=== PATIENT | male | born 1960 | race African-American/Black ===

== ENCOUNTER 2019-03-29 10:51 | Inpatient (IN) ==
[2019-03-29] MEDS ORDERED: DOCUSATE SODIUM 100 MG CAPSULE PO PRN (14:42)
[2019-03-29] MEDS ORDERED: ACETAMINOPHEN 325 MG TABLET PO PRN (14:42)
[2019-03-29] MEDS ORDERED: hydrALAZINE 20 MG/1 ML VIAL IV PRN (14:42)
[2019-03-29] MEDS ORDERED: ONDANSETRON 4 MG/2 ML VIAL IV PRN (14:42)
[2019-03-29] MEDS ORDERED: ALBUTEROL 2.5 MG/3 ML NEB RESP TX PRN (14:42)
[2019-03-29] MEDS ORDERED: LACTULOSE 20 GM/30 ML UDCUP PO PRN (14:42)
[2019-03-29 15:21] LABS: Basophils % 0.9 % (0.0-0.8); Eosinophils # 0.5 10*3/uL (0.0-0.87); Eosinophils % 10.5 % (0.00-10.9); Hematocrit 39.3 VOL% (42.0-52.0); Hemoglobin 12.1 GM/DL (14.0-18.0); Immature Granulocytes % 0.2 %; Immature Granulocytes Absolute 0.01 #; Lymphocytes # 1.6 10*3/uL (1.4-4.0); Lymphocytes % 34.9 % (21.2-54.2); Mean Corpuscular HGB Conc 30.8 GM/DL (32-36); Mean Corpuscular Volume 94.7 FL (87-102); Mean Platelet Volume 9.5 FL (9.6-12.0); Monocytes % 15.8 % (1.7-12.7); Neutrophils % 37.7 % (38.7-73.9); Platelet Count 169 T/CUMM (130-400); Red Blood Count 4.15 MC/CUMM (3.8-5.5); Red Cell Distribution Width 13.6 % (9.3-17.3); White Blood Count 4.6 T/CUMM (4-12)
[2019-03-29 15:57] LABS: Albumin 3.8 G/DL (3.4-5.0); Bilirubin,Total 0.7 MG/DL (0.2-1.0); Calcium 9.5 MG/DL (8.5-10.1); Osmolality,Calculated 282.8 MOS/KG (273-304); Thyroid Stimulating Hormone 0.948 uIU/ml (0.358-3.74); Total Protein 7.2 G/DL (6.4-8.3)
[2019-03-29] MEDS: FUROSEMIDE 40 MG/4 ML VIAL IV SCH (16:07)
[2019-03-29 16:11] LABS: Eosinophils 8 % (0-10); Lymphocytes 37 % (20-55); Segmented Neutrophils 43 % (50-85); Total Cells Counted 100
[2019-03-29 16:12] LABS: Anisocytosis Slight; Hypochromasia Slight; Microcytosis Slight
[2019-03-29] MEDS: ASPIRIN EC 81 MG TABLET PO SCH (17:44)
[2019-03-29] MEDS: cefTRIAXone 1,000 MG in SYRINGE 1 EACH IV SCH (17:44)
[2019-03-29] MEDS: AZITHROMYCIN INJ 500 MG in SODIUM CHLORIDE 0.9% 250 ML IV SCH (17:44)
[2019-03-29] MEDS: ALBUTEROL/IPRATROPIUM 3 ML NEB RESP TX SCH (19:20)
[2019-03-29] MEDS: SIMVASTATIN 40 MG TABLET PO SCH (20:51)
[2019-03-29] MEDS: BUDESONIDE/FORMOTEROL 160-4.5 INHALER 6 GM INH SCH (20:52)
[2019-03-29] MEDS: ENOXAPARIN 30 MG/0.3 ML SYRINGE SUBCUT SCH (20:53)
[2019-03-30] MEDS: ALBUTEROL/IPRATROPIUM 3 ML NEB RESP TX SCH ×4 (01:20→19:15)
[2019-03-30 02:50] LABS: Basophils % 0.7 % (0.0-0.8); Eosinophils # 0.5 10*3/uL (0.0-0.87); Eosinophils % 11.2 % (0.00-10.9); Hematocrit 37.6 VOL% (42.0-52.0); Hemoglobin 11.8 GM/DL (14.0-18.0); Immature Granulocytes % 0.2 %; Immature Granulocytes Absolute 0.01 #; Lymphocytes # 1.8 10*3/uL (1.4-4.0); Lymphocytes % 39.2 % (21.2-54.2); Mean Corpuscular HGB Conc 31.4 GM/DL (32-36); Mean Platelet Volume 9.6 FL (9.6-12.0); Monocytes % 13.6 % (1.7-12.7); Neutrophils % 35.1 % (38.7-73.9); Platelet Count 175 T/CUMM (130-400); Red Cell Distribution Width 13.5 % (9.3-17.3); White Blood Count 4.6 T/CUMM (4-12)
[2019-03-30 03:08] LABS: Osmolality,Calculated 293.3 MOS/KG (273-304)
[2019-03-30 03:15] LABS: Risk Ratio 5.44
[2019-03-30 03:39] LABS: Band Neutrophils 4 % (0-10); Eosinophils 12 % (0-10); Hypochromasia 1+; Lymphocytes 34 % (20-55); Platelet Estimate Normal; Segmented Neutrophils 35 % (50-85); Total Cells Counted 100
[2019-03-30] MEDS ORDERED: MAGNESIUM HYDROXIDE SUSP 30 ML UDCUP PO ONE (09:17)
[2019-03-30] MEDS: COLCHICINE 0.6 MG CAPSULE PO SCH (09:32)
[2019-03-30] MEDS: PANTOPRAZOLE 40 MG TABLET PO SCH (09:32)
[2019-03-30] MEDS: FUROSEMIDE 40 MG/4 ML VIAL IV SCH (09:32)
[2019-03-30] MEDS: ASPIRIN EC 81 MG TABLET PO SCH (09:32)
[2019-03-30] MEDS: BUDESONIDE/FORMOTEROL 160-4.5 INHALER 6 GM INH SCH ×2 (09:36→20:29)
[2019-03-30] MEDS: POLYETHYLENE GLYCOL POWDER 17 GM PACK PO SCH (09:48)
[2019-03-30 11:24] LABS: Apearance,Urine Slightly Hazy (Clear); Bacteria,Urine Occasional /HPF (Few); Bilirubin,Urine Negative (Negative); Blood, Urine Small mg/dL (Negative); Glucose,Urine (UA) Negative (Negative); Hyaline Casts,Urine 1 /LPF (0-3); Ketones,Urine Negative (Negative); Mucus,Urine Occasional /LPF (Occasional); Nitrite,Urine Negative (Negative); Protein,Urine 100 MG/DL; RBC,Urine 7 /HPF (0-4); Squamous Epithelial Cell,Urine Occasional /HPF (0-10); Urine Color Yellow (Yellow); Urine Specific Gravity 1.016 (1.001-1.035); Urine Urobilinogen < 2.0 EU/DL (0.2-1.0); WBC,Urine 13 /HPF (0-6)
[2019-03-30] MEDS: POTASSIUM CHLORIDE 20 MEQ TABLET PO SCH (11:33)
[2019-03-30 11:38] LABS: Microalbum/Creat Ratio Random 464.2 RATIO (0-30)
[2019-03-30] MEDS: hydrALAZINE 10 MG TABLET PO SCH ×2 (15:55→20:28)
[2019-03-30] MEDS: ISOSORBIDE MONONITRATE 20 MG TABLET PO SCH (15:55)
[2019-03-30] MEDS: cefTRIAXone 1,000 MG in SYRINGE 1 EACH IV SCH (17:51)
[2019-03-30] MEDS: AZITHROMYCIN INJ 500 MG in SODIUM CHLORIDE 0.9% 250 ML IV SCH (17:52)
[2019-03-30] MEDS: SIMVASTATIN 40 MG TABLET PO SCH (20:29)
[2019-03-30] MEDS: ENOXAPARIN 30 MG/0.3 ML SYRINGE SUBCUT SCH (20:29)
[2019-03-31] MEDS: ALBUTEROL/IPRATROPIUM 3 ML NEB RESP TX SCH ×4 (00:33→19:16)
[2019-03-31 05:08] LABS: Basophils % 0.8 % (0.0-0.8); Eosinophils # 0.6 10*3/uL (0.0-0.87); Eosinophils % 12.8 % (0.00-10.9); Hematocrit 37.7 VOL% (42.0-52.0); Hemoglobin 11.5 GM/DL (14.0-18.0); Immature Granulocytes % 0.2 %; Immature Granulocytes Absolute 0.01 #; Lymphocytes # 1.6 10*3/uL (1.4-4.0); Lymphocytes % 33.5 % (21.2-54.2); Mean Corpuscular HGB Conc 30.5 GM/DL (32-36); Mean Platelet Volume 10.2 FL (9.6-12.0); Monocytes % 15.1 % (1.7-12.7); Neutrophils % 37.6 % (38.7-73.9); Platelet Count 170 T/CUMM (130-400); Red Blood Count 3.97 MC/CUMM (3.8-5.5); Red Cell Distribution Width 13.2 % (9.3-17.3); White Blood Count 4.8 T/CUMM (4-12)
[2019-03-31 05:29] LABS: Osmolality,Calculated 283.1 MOS/KG (273-304)
[2019-03-31 05:41] LABS: Eosinophils 14 % (0-10); Hypochromasia 1+; Lymphocytes 33 % (20-55); Ovalocytes Slight; Platelet Estimate Adequate; Segmented Neutrophils 34 % (50-85); Total Cells Counted 100
[2019-03-31] MEDS: PANTOPRAZOLE 40 MG TABLET PO SCH (09:32)
[2019-03-31] MEDS: POTASSIUM CHLORIDE 20 MEQ TABLET PO SCH (09:32)
[2019-03-31] MEDS: hydrALAZINE 10 MG TABLET PO SCH ×3 (09:32→20:48)
[2019-03-31] MEDS: FUROSEMIDE 40 MG/4 ML VIAL IV SCH (09:32)
[2019-03-31] MEDS: ASPIRIN EC 81 MG TABLET PO SCH (09:32)
[2019-03-31] MEDS: COLCHICINE 0.6 MG CAPSULE PO SCH (09:32)
[2019-03-31] MEDS: POLYETHYLENE GLYCOL POWDER 17 GM PACK PO SCH (09:33)
[2019-03-31] MEDS: ISOSORBIDE MONONITRATE 20 MG TABLET PO SCH ×2 (09:33→15:00)
[2019-03-31] MEDS: BUDESONIDE/FORMOTEROL 160-4.5 INHALER 6 GM INH SCH ×2 (09:39→20:48)
[2019-03-31] MEDS: cefTRIAXone 1,000 MG in SYRINGE 1 EACH IV SCH (17:38)
[2019-03-31] MEDS: AZITHROMYCIN INJ 500 MG in SODIUM CHLORIDE 0.9% 250 ML IV SCH (17:43)
[2019-03-31] MEDS: ENOXAPARIN 30 MG/0.3 ML SYRINGE SUBCUT SCH (20:48)
[2019-03-31] MEDS ORDERED: ROSUVASTATIN 20 MG TABLET PO SCH (21:00)
[2019-04-01] MEDS: ALBUTEROL/IPRATROPIUM 3 ML NEB RESP TX SCH ×3 (00:45→13:35)
[2019-04-01 06:34] LABS: Basophils % 0.5 % (0.0-0.8); Eosinophils # 0.7 10*3/uL (0.0-0.87); Eosinophils % 12.2 % (0.00-10.9); Hematocrit 39.4 VOL% (42.0-52.0); Immature Granulocytes % 0.2 %; Immature Granulocytes Absolute 0.01 #; Lymphocytes # 2.1 10*3/uL (1.4-4.0); Lymphocytes % 36.7 % (21.2-54.2); Mean Corpuscular HGB Conc 30.5 GM/DL (32-36); Mean Corpuscular Volume 96.3 FL (87-102); Mean Platelet Volume 9.5 FL (9.6-12.0); Monocytes % 14.5 % (1.7-12.7); Neutrophils % 35.9 % (38.7-73.9); Platelet Count 192 T/CUMM (130-400); Red Blood Count 4.09 MC/CUMM (3.8-5.5); Red Cell Distribution Width 13.3 % (9.3-17.3); White Blood Count 5.6 T/CUMM (4-12)
[2019-04-01 06:53] LABS: Calcium 9.1 MG/DL (8.5-10.1); Osmolality,Calculated 281.2 MOS/KG (273-304)
[2019-04-01 07:17] LABS: Eosinophils 21 % (0-10); Hypochromasia 1+; Lymphocytes 47 % (20-55); Platelet Estimate Adequate; Segmented Neutrophils 25 % (50-85); Total Cells Counted 100
[2019-04-01] MEDS: ISOSORBIDE MONONITRATE 20 MG TABLET PO SCH ×2 (10:15→14:53)
[2019-04-01] MEDS: COLCHICINE 0.6 MG CAPSULE PO SCH (10:15)
[2019-04-01] MEDS: POTASSIUM CHLORIDE 20 MEQ TABLET PO SCH (10:15)
[2019-04-01] MEDS: PANTOPRAZOLE 40 MG TABLET PO SCH (10:15)
[2019-04-01] MEDS: hydrALAZINE 10 MG TABLET PO SCH ×2 (10:15→14:53)
[2019-04-01] MEDS: ASPIRIN EC 81 MG TABLET PO SCH (10:15)
[2019-04-01] MEDS: FUROSEMIDE 40 MG/4 ML VIAL IV SCH (10:16)
[2019-04-01] MEDS: BUDESONIDE/FORMOTEROL 160-4.5 INHALER 6 GM INH SCH (10:16)
[2019-04-01] MEDS: POLYETHYLENE GLYCOL POWDER 17 GM PACK PO SCH (10:16)
[2019-04-01 16:21] VITALS: BP 130/82
== END 2019-04-01 16:51 | disposition home or self-care (01) | DRG 291 ==
LOC: N.TELES 13:32 → SUATTDRO 13:32
PROVIDERS: ADMIT Internal Medicine; ATTEND Family Medicine